=== PATIENT | male | born 1985 | race Hispanic/Latino ===

== ENCOUNTER 2021-10-04 01:53 | Emergency (ER) | payer OTHER ==
[2021-10-04] MEDS ORDERED: HYDROmorphone 1 MG/1 ML INJ IV ONE ×2 (02:05→03:31)
[2021-10-04] MEDS ORDERED: KETOROLAC 30 MG/1 ML INJ IV ONE (02:05)
--- NOTE | 2021-10-04 02:06 | Emergency Department Report ---
ED General Adult HPI - General Chief complaint: Back Pain/Injury Stated complaint: BACK INJURY PUI?: No Time Seen by Provider: 10/04/21 01:57 Source: patient, RN notes reviewed Mode of arrival: Stretcher Limitations: No Limitations - History of Present Illness Initial comments: The patient was evaluated in the emergency department for symptoms described in the history of present illness. He/she was evaluated in the context of the global COVID-19 pandemic, which necessitated consideration that the patient might be at risk for infection with the virus that causes COVID-19. Institutional protocols and algorithms that pertain to the evaluation of patients at risk for COVID-19 are in a state of rapid change based on informa tion released by regulatory bodies including the CDC and federal and state organizations. These policies and algorithms were followed during the patient's care in the emergency department. Please note that these policies, procedures and recommendations changed on a rapid basis. The patient is a 36-year-old gentleman, who presents to the ER with a complaint of paralumbar, and lower back pain, after twisting and lifting while working. 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 He was not hit with anything, and he did not fall, and he continued to work on the scene. His back pain is in his paralumbar region, and he also points to the sacroiliac region. He denies headache, neck pain, chest pain, abdominal pain, shortness of breath, nausea, vomiting, weakness/numbness. Pain is sharp and throbbing, increases with palpation and range of motion, decreases with rest, position, hydromorphone, and ketorolac. He felt improved in the emergency room with the aforementioned medications. -: Sudden Radiation: back Quality: aching Consistency: constant Improves with: other Worsens with: other Associated Symptoms: denies other symptoms - Related Data Previous Rx's Medication Instructions Recorded Last Taken Type Acetaminophen [Non-Aspirin Extra 500 mg PO Q6HR PRN #30 tablet 10/04/21 Unknown Rx Strength] Ibuprofen [Motrin] 600 mg PO Q8H PRN #30 tablet 10/04/21 Unknown Rx methOCARBAMOL [Robaxin TAB] 1,500 mg PO TID PRN #30 tab 10/04/21 Unknown Rx Allergies Allergy/AdvReac Type Severity Reaction Status Date / Time No Known Allergies Allergy Verified 10/04/21 02:12 ED Review of Systems ROS: Stated complaint: BACK INJURY Other details as noted in HPI Comment: All other systems reviewed and negative Musculoskeletal: back pain Neurological: denies: weakness, numbness ED Past Medical Hx - Medications Home Medications: Home Medications Medication Instructions Recorded Confirmed Last Taken Type Acetaminophen [Non-Aspirin Extra 500 mg PO Q6HR PRN #30 tablet 10/04/21 Unknown Rx Strength] Ibuprofen [Motrin] 600 mg PO Q8H PRN #30 tablet 10/04/21 Unknown Rx methOCARBAMOL [Robaxin TAB] 1,500 mg PO TID PRN #30 tab 10/04/21 Unknown Rx ED Physical Exam - General Limitations: No Limitations General appearance: alert, anxious - Head Head exam: Present: atraumatic, normocephalic - Eye Eye exam: Present: normal appearance, EOMI. Absent: nystagmus - ENT ENT exam: Present: normal exam, normal orophraynx, mucous membranes moist, normal external ear exam - Neck Neck exam: Present: normal inspection, full ROM. Absent: tenderness, meningismus - Respiratory Respiratory exam: Present: normal lung sounds bilaterally. Absent: respiratory distress, wheezes, rales, rhonchi, stridor, decreased breath sounds - Cardiovascular Cardiovascular Exam: Present: regular rate, normal rhythm, normal heart sounds. Absent: bradycardia, tachycardia, irregular rhythm, systolic murmur, diastolic murmur, rubs, gallop - GI/Abdominal GI/Abdominal exam: Present: soft. Absent: distended, tenderness, guarding, rebound, rigid, pulsatile mass - Rectal Rectal exam: Present: deferred - Extremities Exam Extremities exam: Present: normal inspection, full ROM, other (2+ pulses noted in the bilateral upper and lower extremities. There is no palpable cord. negative Homans sign. Muscular compartments are soft. The pelvis is stable.). Absent: pedal edema, calf tenderness - Back Exam Back exam: Present: normal inspection, muscle spasm, paraspinal tenderness. Absent: tenderness, CVA tenderness (R), CVA tenderness (L), vertebral tenderness - Neurological Exam Neurological exam: Present: alert, oriented X3, normal gait, reflexes normal, other (No facial droop. Tongue midline. Extraocular movements intact bilaterally. Facial sensation intact to light touch in V1, V2, V3 distribution bilaterally. 5 and a 5 strength in 4 extremities. Sensation intact to light touch in 4 extremities.). Absent: motor sensory deficit - Psychiatric Psychiatric exam: Present: anxious - Skin Skin exam: Present: warm, dry, intact, normal color. Absent: rash ED Course Vital Signs 10/04/21 10/04/21 10/04/21 02:08 02:13 02:15 Temperature 98 F 97.7 F Pulse Rate 97 H 90 Respiratory 18 14 14 Rate Blood Pressure 146/97 Blood Pressure 146/95 [Left] O2 Sat by Pulse 97 97 97 Oximetry 10/04/21 02 02:22 02:23 Temperature Pulse Rate Respiratory 18 18 Rate Blood Pressure Blood Pressure [Left] O2 Sat by Pulse Oximetry - Pulse Oximetry Interpretation Digit-Finger Initial Pulse Oximetry Readin O2 Sat by Pulse Oximetry: 97 Actions Taken: none ED Medical Decision Making - Lab Data Vital Signs 10/04/21 10/04/21 02 02:08 02:13 02:15 Temperature 98 F 97.7 F Pulse Rate 97 H 90 Respiratory 18 14 14 Rate Blood Pressure 146/97 Blood Pressure 146/95 [Left] O2 Sat by Pulse 97 97 97 Oximetry 10/04/21 10/04/21 02:22 02:23 Temperature Pulse Rate Respiratory 18 18 Rate Blood Pressure Blood Pressure [Left] O2 Sat by Pulse Oximetry - Medical Decision Making Differential diagnosis, including but not limited to: Muscle spasm, sprain, strain Assessment and plan: 36-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 He has appropriate strength, sensation, reflexes and downgoing plantar reflexes, is able to ambulate with minimal assistance. He is still having some pain, but markedly improved. He will need to follow-up with Worker's Compensation physician for clearance to return to full duty. He is educated as to the natural history of mechanical back pain. He is suitable for discharge at this point in time. There is no abdominal tenderness, rebound, guarding or peritoneal signs, no pulsatile abdominal mass, and he has no physical exam findings that would suggest epidural compression syndrome at this time. Critical care attestation.: If time is entered above; I have spent that time in minutes in the direct care of this critically ill patient, excluding procedure time. ED Disposition Clinical Impression: Lower back pain Qualifiers: Chronicity: acute Back pain laterality: unspecified Sciatica presence: without sciatica Qualified Code(s): M54.50 - Low back pain, unspecified Disposition: 01 HOME / SELF CARE / HOMELESS Is pt being admited?: No Does the pt Need Aspirin: No Condition: Good Instructions: Acute Back Pain, Adult Additional Instructions: As we discussed, pain typically gets worse before it gets better after blunt trauma.. Rest and avoid heavy lifting, and avoid strenuous physical activity. Engage in physical activities as tolerated. For pain, the patient can take ibuprofen, 600 mg with food every 6 hours, alternating with acetaminophen, 650 mg every 4 hours, also which can be purchased [id number]. Return to the ER right away with new pain, worsened pain, migration of pain, fevers, chills, confusion, weakness, numbness, intractable nausea or vomiting, severe chest pain, or severe abdominal pain. Please take the pain medications as prescribed/needed and directed. Patient may return to work and work and light duty, but is not cleared to return to full duty, heavy lifting. He will need to follow-up with a primary care doctor, spine physician, or Worker's Compensation physician. [facility] is a local medical clinic. [facility] is a local spine clinic. Please return to the emergency room right away with new pain, worsened pain, migration of pain, projectile vomiting, change in mental status, confusion, inability tolerate liquid feeds, new, worsened or different symptoms not present on the initial emergency room evaluation When taking the Robaxin, exercise caution because this medication is sedating. Do not drive, consume alcohol, combine with other sedating medications, or make important decisions when taking this medication. Referrals: [facility] [Provider Group] - 3-5 Days [facility] [Provider Group] - 3-5 Days Forms: Work/School Release Form
[2021-10-04] MEDS ORDERED: ACETAMINOPHEN 500 MG TAB PO ONE (03:31)
[2021-10-04 06:32] VITALS: BP 120/78
== END 2021-10-04 04:30 | disposition home or self-care (01) ==
LOC: ED 01:53
DX: M54.50 Low back pain, unspecified (principal)
CPT/HCPCS: 96374; 96375; 96376; 99283; J1170; J1885